=== PATIENT | female | born 1990 ===

== ENCOUNTER 2020-05-01 00:07 | Inpatient (IN) | payer BC ==
[2020-05-01] MEDS ORDERED: Sodium Chloride 0.9% 10 ML SDV IV PRN (00:20)
[2020-05-01] MEDS ORDERED: Carboprost Tromethamine 250 MCG/1 ML Amp IM PRN (00:20)
[2020-05-01] MEDS ORDERED: Nalbuphine 10 MG/1 ML Vial IVPUSH PRN (00:20)
[2020-05-01] MEDS ORDERED: Misoprostol 25 MCG (1/4 of 100 MCG) Tab VAG PRN ×2 (00:20)
[2020-05-01] MEDS ORDERED: Lidocaine 1% 50 ML MDV INJECT PRN (00:20)
[2020-05-01] MEDS ORDERED: Sodium Chloride 0.9% 2.5 ML Syringe FLUSH PRN (00:20)
[2020-05-01] MEDS ORDERED: Butorphanol 1 MG/ML SDV IVPUSH PRN (00:20)
[2020-05-01] MEDS ORDERED: Tranexamic Acid 1,000 MG in Sodium Chloride 0.9% 100 ML IV PRN (00:20)
[2020-05-01] MEDS ORDERED: Terbutaline 1 MG/ML SDV SUBCUT PRN (00:20)
[2020-05-01] MEDS ORDERED: Misoprostol 200 MCG Tab PO PRN (00:20)
[2020-05-01] MEDS ORDERED: Water For Irrigation,Sterile 1,000 ML Container IRR PRN (00:20)
[2020-05-01] MEDS ORDERED: Sodium Chloride 0.9% 10 ML Syringe FLUSH PRN (00:20)
[2020-05-01] MEDS ORDERED: Methylergonovine 0.2 MG/1 ML Amp IM PRN (00:20)
[2020-05-01] MEDS ORDERED: Oxytocin/0.9 % Sodium Chloride 30 UNIT/500 ML BAG IV SCH ×2 (00:30)
[2020-05-01] MEDS: Lactated Ringers 1,000 ML IV SCH ×3 (01:11→15:21)
[2020-05-01] MEDS ORDERED: fentaNYL 100 MCG/2 ML SDV ONE (11:44)
[2020-05-01] MEDS ORDERED: Ropivacaine HCl/PF 100 ML ONE (11:44)
[2020-05-01] MEDS ORDERED: Ropivacaine 0.2% PF 2 MG/ML 20 ML SDV ONE (11:49)
--- NOTE | 2020-05-01 12:30 | PCM.PREANE ---
Preanesthetic Assessment - Procedure Proposed Procedure: FRED. - Anesthesia/Transfusion/Family Hx Anesthesia History: Prior Anesthesia Without Reaction Family History of Anesthesia Reaction: No Transfusion History: No Prior Transfusion(s) Intubation History: Unknown - Review of Systems General: No Symptoms Pulmonary: No Symptoms Cardiovascular: No Symptoms Gastrointestinal: No Symptoms Neurological: No Symptoms Other: Reports: None - Physical Assessment NPO Status Date: 05/01/20 NPO Status Time: 11:30 (Clear liquids) Height: 1.7 m Weight: 96.162 kg ASA Class: 2 Airway Class: Mallampati = 2 Thyro-Mental Finger Breadths: 3 Mouth Opening Finger Breadths: 3 ROM/Head Extension: Full Lungs: Clear to Auscultation, Normal Respiratory Effort Cardiovascular: Regular Rate, Regular Rhythm - Lab Values: Laboratory Last Values WBC 12.31 K/uL (4.0-11.0) H 05/01/20 00:55 RBC 4.20 M/uL (4.30-5.90) L 05/01/20 00:55 Hgb 12.5 g/dL (12.0-16.0) 05/01/20 00:55 Hct 36.4 % (36.0-46.0) 05/01/20 00:55 MCV 86.7 fL (80.0-98.0) 05/01/20 00:55 MCH 29.8 pg (27.0-32.0) 05/01/20 00:55 MCHC 34.3 g/dL (31.0-37.0) 05/01/20 00:55 RDW Std Deviation 42.5 fl (28.0-62.0) 05/01/20 00:55 RDW Coeff of Vignesh 14 % (11.0-15.0) 05/01/20 00:55 Plt Count 179 K/uL (150-400) 05/01/20 00:55 MPV 11.70 fL (7.40-12.00) 05/01/20 00:55 COVID-19 (ACRLOS) NEGATIVE (NEGATIVE) 05/01/20 01:20 Blood Type A POSITIVE 05/01/20 00:55 Antibody Screen NEGATIVE 05/01/20 00:55 - Allergies Allergies/Adverse Reactions: Allergies Allergy/AdvReac Type Severity Reaction Status Date / Time azithromycin Allergy Rash Verified 04/21/20 11:52 [From Zithromax Z-Sam] egg Allergy Hives Verified 04/25/20 15:17 - Blood Blood Available: No Product(s) Available: None - Anesthesia Plan Pre-Op Medication Ordered: None - Acknowledgements Anesthesia Type Planned: Epidural Pt an Appropriate Candidate for the Planned Anesthesia: Yes Alternatives and Risks of Anesthesia Discussed w Pt/Guardian: Yes Pt/Guardian Understands and Agrees with Anesthesia Plan: Yes Additional Comments: 39+3, active labor. 4cm dilated. Pain 9/10. Previous epidural without issues. Discussed, ? answered, permit signed, wishes to proceed. Acceptable candidate. 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: - Past Surgical History HEENT Surgical History: Reports: Oral Surgery, Tonsillectomy Musculoskeletal Surgical History: Reports: Other (See Below) Other Musculoskeletal Surgeries/Procedures:: left middle finger nerve surgery - SUBSTANCE USE Smoking Status *Q: Never Smoker Second Hand Smoke Exposure: No Recreational Drug Use History: No - CURRENT (IN HOUSE) MEDS Current Meds: Current Medications Butorphanol Tartrate (Stadol) 1 mg IVPUSH Q1H PRN PRN Reason: Pain Carboprost Tromethamine (Hemabate Ds) 250 mcg IM ASDIRECTED PRN PRN Reason: Post Hemorrhage Oxytocin/Sodium Chloride (Oxytocin 30 Unit/500 Ml-Ns) 30 unit in 500 mls @ 500 mls/hr IV TITRATE SHADE Tranexamic Acid 1,000 mg/ (Sodium Chloride) 110 mls @ 660 mls/hr IV ONETIME PRN PRN Reason: Bleeding Oxytocin/Sodium Chloride (Oxytocin 30 Unit/500 Ml-Ns) 30 unit in 500 mls @ 2 mls/hr IV TITRATE SHADE; Protocol Last Titration: 05/01/20 10:56 Dose: 12 munits/min, 12 mls/hr Documented by: Lactated Ringer's (Ringers, Lactated) 1,000 mls @ 150 mls/hr IV ASDIRECTED SHADE Last Admin: 05/01/20 11:53 Dose: 999 mls/hr Documented by: Lidocaine HCl (Xylocaine 1%) 50 ml INJECT ONETIME PRN PRN Reason: Laceration repair Methylergonovine Maleate (Methergine) 0.2 mg IM ASDIRECTED PRN PRN Reason: Post Hemorrhage Misoprostol (Cytotec) 200 mcg PO ONETIME PRN PRN Reason: Post Hemorrhage Misoprostol (Cytotec) 25 mcg VAG ONETIME PRN PRN Reason: Cervical Ripening Last Admin: 05/01/20 01:11 Dose: 25 mcg Documented by: Misoprostol (Cytotec) 25 mcg VAG Q4H PRN PRN Reason: Cervical Ripening Last Admin: 05/01/20 05:02 Dose: 25 mcg Documented by: Nalbuphine HCl (Nubain) 10 mg IVPUSH Q1H PRN PRN Reason: Pain (severe 7-10) Sodium Chloride (Saline Flush) 10 ml FLUSH ASDIRECTED PRN PRN Reason: Keep Vein Open Sodium Chloride (Saline Flush) 2.5 ml FLUSH ASDIRECTED PRN PRN Reason: Keep Vein Open Sodium Chloride (Normal Saline) 10 ml IV ASDIRECTED PRN PRN Reason: IV Use Sterile Water (Sterile Water For Irrigation) 1,000 ml IRR ASDIRECTED PRN PRN Reason: delivery Terbutaline Sulfate (Brethine) 0.25 mg SUBCUT ASDIRECTED PRN PRN Reason: Tacysystole Discontinued Medications Fentanyl (Sublimaze) Confirm Administered Dose 100 mcg .ROUTE .STK-MED ONE Stop: 05/01/20 11:45 Ropivacaine (Naropin 0.2%) Confirm Administered Dose 100 mls @ as directed .ROUTE .STK-MED ONE Stop: 05/01/20 11:45 Ropivacaine (Naropin 0.2%) Confirm Administered Dose 20 ml .ROUTE .STK-MED ONE Stop: 05/01/20 11:50
[2020-05-01] MEDS ORDERED: oxyCODONE 5 MG Tab PO PRN (17:25)
[2020-05-01] MEDS ORDERED: Docusate Sodium 100 MG Cap PO PRN (17:25)
[2020-05-01] MEDS ORDERED: Benzocaine/Menthol 20%-0.5% Spray 78 GM Cannister TOP PRN (17:25)
[2020-05-01] MEDS ORDERED: Ibuprofen 400 MG Tab PO PRN (17:25)
[2020-05-01] MEDS ORDERED: Acetaminophen 500 MG Tab PO PRN ×2 (17:25)
[2020-05-01] MEDS ORDERED: Lanolin 100% Cream 7 GM Tube TOP PRN (17:25)
[2020-05-01] MEDS ORDERED: Bisacodyl 10 MG Supp RECTAL PRN (17:25)
[2020-05-01] MEDS ORDERED: Witch Hazel Medicated Pads 40/Jar TOP PRN (17:25)
--- NOTE | 2020-05-01 17:31 | PCM.OPNOTE ---
- General Post-Op/Procedure Note Date of Surgery/Procedure: 05/01/20 Operative Procedure(s): /2nd MLL repaired Findings: Viable female APGARs 9, 9 weight 3250 gm. Spontaneous delivery intact placenta with 3V cord. Pre Op Diagnosis: 39 week IUP. Elective IOL Post-Op Diagnosis: Same Anesthesia Technique: Epidural Primary Surgeon: Albertina Ulrich EBL in mLs: 300 Complications: none known Condition: Good Free Text/Narrative:: Dictation [id number]
--- NOTE | 2020-05-01 18:20 | OR ---
SURGEON: Albertina Ulrich M.D. DATE OF PROCEDURE: 05/01/2020 PREOPERATIVE DIAGNOSES: 1. A 39-week intrauterine . 2. Elective induction of labor. POSTOPERATIVE DIAGNOSES: 1. A 39-week intrauterine . 2. Elective induction of labor. PROCEDURE: Spontaneous vaginal delivery, second-degree midline laceration repair. PRIMARY SURGEON: Albertina Ulrich MD ANESTHESIA: Epidural. ESTIMATED BLOOD LOSS: 300 mL. COMPLICATIONS: None known. FINDINGS: Viable female. score of 9 at one minute, 9 at five minutes. Weight of 3250 g. Spontaneous delivery, intact placenta, 3-vessel cord. DISPOSITION: Infant to nursery, mom in LDRP. PROCEDURE DETAILS: Kymberly is a 29-year-old, G2, P1, at 39 weeks' gestational age, who presents today for scheduled induction of labor due to patient request. Risks of procedure were discussed and proper consent obtained. The patient was admitted, routine labs were drawn. Was initiated on Cytotec ripening. Received 2 doses of Cytotec and at that time was found to be approximately 4 cm, 100% effaced, minus 2 station. She then was transitioned to Pitocin. Became increasingly uncomfortable. Underwent regional anesthesia in the form of epidural. Became more comfortable and an amniotomy was performed. Clear fluid was returned. Then, IUPC was placed to help monitor Pitocin titration. heart tones remained category 1. The patient began to progress more rapidly thereafter and shortly after 4 p.m. was found to be complete, 100% effaced, +2 station. I was called for delivery. Upon my arrival, the patient was placed in modified dorsal lithotomy position, was prepped and draped in usual aseptic manner. Began pushing efforts and pushed adequately to a +4 station. Was able to deliver 's head atraumatically spontaneously, followed by anterior shoulder, posterior shoulder, and remainder of the body without difficulty. A loose nuchal cord x1 was noted, it was reduced manually. Infant's oropharynx and nares were bulb suctioned. Infant was handed off to her mother with attending nursing staff at her side. Cord arterial, cord venous, cord blood sampling obtained. Light pressure was applied while the placenta was delivered spontaneously intact. Vigorous fundal uterine massage was then applied while 30 units of Pitocin was delivered in 500 mL of IV fluid. Upon inspection of cervix, vaginal sidewalls, and perineum, there was found to be a second-degree midline laceration. This was repaired using 3-0 Vicryl in the usual fashion. The patient tolerated this well. Sponge count, instrument count, and needle count were correct. The patient remained in LDRP, to nursery. Hemostasis evident. JERICHO / JOSE /[id number]
[2020-05-01] MEDS: Ibuprofen 800 MG Tab PO PRN (19:43)
[2020-05-02] MEDS: Ibuprofen 800 MG Tab PO PRN ×2 (04:50→12:28)
--- NOTE | 2020-05-02 07:51 | PCM48HPAN ---
Post Anesthesia Note - EVALUATION WITHIN 48HRS OF ANESTHETIC Vital Signs in Normal Range: Yes Patient Participated in Evaluation: Yes Respiratory Function Stable: Yes Airway Patent: Yes Cardiovascular Function Stable: Yes Hydration Status Stable: Yes Pain Control Satisfactory: Yes Nausea and Vomiting Control Satisfactory: Yes Mental Status Recovered: Yes Vital Signs: Last Vital Signs Temp 36.6 C 05/02/20 04:40 Pulse 67 05/02/20 04:40 Resp 18 05/02/20 04:40 BP 124/79 05/02/20 04:40 Pulse Ox 96 05/02/20 04:40
--- NOTE | 2020-05-02 09:54 | PCM.PNPP ---
- General Info Date of Service: 05/02/20 Functional Status: Reports: Pain Controlled, Tolerating Diet, Ambulating, Urinating - Review of Systems General: Denies: Fever, Weakness, Fatigue Pulmonary: Denies: Shortness of Breath Cardiovascular: Denies: Chest Pain, Palpitations Gastrointestinal: Reports: No Symptoms Genitourinary: Reports: No Symptoms Musculoskeletal: Reports: No Symptoms Skin: Reports: No Symptoms Neurological: Reports: No Symptoms Psychiatric: Reports: No Symptoms - General Info Date of Service: 05/02/20 - Patient Data Vital Signs - Most Recent: Last Vital Signs Temp 36.7 C 05/02/20 08:00 Pulse 77 05/02/20 08:00 Resp 14 05/02/20 08:00 BP 124/79 05/02/20 04:40 Pulse Ox 96 05/02/20 08:00 Weight - Most Recent: 96.162 kg I&O - Last 24 Hours: Intake & Output 05/01/20 05/02/20 05/02/20 22:59 06:59 14:59 Output Total 375 Balance -375 Lab Results - Last 24 Hours: Laboratory Results - last 24 hr 05/01/20 05/02/20 Range/Units 17:02 05:35 Hgb 12.1 (12.0-16.0) g/dL Hct 37.4 (36.0-46.0) % Cord ABG pH 7.334 (7.18-7.38) Cord ABG Base Excess -5 (-10--2) Cord VBG pH 7.357 (7.25-7.45) Cord VBG Base Excess -6 (-10--2) Med Orders - Current: Current Medications Acetaminophen (Tylenol Extra Strength) 500 mg PO Q4H PRN PRN Reason: Pain Acetaminophen (Tylenol Extra Strength) 1,000 mg PO Q4H PRN PRN Reason: Pain Benzocaine/Menthol (Dermoplast Pain Relief 20%-0.5% [place]) 78 gm TOP ASDIRECTED PRN PRN Reason: Perineal Comfort Measure Last Admin: 05/01/20 19:43 Dose: 1 canister Documented by: Bisacodyl (Dulcolax) 10 mg RECTAL ONETIME PRN PRN Reason: Constipation Docusate Sodium (Colace) 100 mg PO BID PRN PRN Reason: Constipation Emollient Ointment (Lansinoh Hpa) 0 gm TOP ASDIRECTED PRN PRN Reason: Sore Nipples Last Admin: 05/01/20 19:43 Dose: 1 tube Documented by: Tranexamic Acid 1,000 mg/ (Sodium Chloride) 110 mls @ 660 mls/hr IV ONETIME PRN PRN Reason: Bleeding Oxytocin/Sodium Chloride (Oxytocin 30 Unit/500 Ml-Ns) 30 unit in 500 mls @ 2 mls/hr IV TITRATE SHADE; Protocol Last Titration: 05/01/20 17:03 Dose: 999 munits/min, 999 mls/hr Documented by: Lactated Ringer's (Ringers, Lactated) 1,000 mls @ 150 mls/hr IV ASDIRECTED SHADE Last Admin: 05/01/20 15:21 Dose: 150 mls/hr Documented by: Ibuprofen (Motrin) 400 mg PO Q4H PRN PRN Reason: Pain Ibuprofen (Motrin) 800 mg PO Q6H PRN PRN Reason: Pain Last Admin: 05/02/20 04:50 Dose: 800 mg Documented by: Lidocaine HCl (Xylocaine 1%) 50 ml INJECT ONETIME PRN PRN Reason: Laceration repair Methylergonovine Maleate (Methergine) 0.2 mg IM ASDIRECTED PRN PRN Reason: Post Hemorrhage Nalbuphine HCl (Nubain) 10 mg IVPUSH Q1H PRN PRN Reason: Pain (severe 7-10) Oxycodone HCl (Oxycodone) 5 mg PO Q2H PRN PRN Reason: Pain Sodium Chloride (Saline Flush) 10 ml FLUSH ASDIRECTED PRN PRN Reason: Keep Vein Open Sodium Chloride (Saline Flush) 2.5 ml FLUSH ASDIRECTED PRN PRN Reason: Keep Vein Open Sodium Chloride (Normal Saline) 10 ml IV ASDIRECTED PRN PRN Reason: IV Use Sterile Water (Sterile Water For Irrigation) 1,000 ml IRR ASDIRECTED PRN PRN Reason: delivery Terbutaline Sulfate (Brethine) 0.25 mg SUBCUT ASDIRECTED PRN PRN Reason: Tacysystole Witch Ritika (Tucks) 1 pad TOP ASDIRECTED PRN PRN Reason: comfort care Last Admin: 05/01/20 19:43 Dose: 1 tub Documented by: Discontinued Medications Butorphanol Tartrate (Stadol) 1 mg IVPUSH Q1H PRN PRN Reason: Pain Carboprost Tromethamine (Hemabate Ds) 250 mcg IM ASDIRECTED PRN PRN Reason: Post Hemorrhage Fentanyl (Sublimaze) Confirm Administered Dose 100 mcg .ROUTE .STK-MED ONE Stop: 05/01/20 11:45 Last Admin: 05/01/20 14:27 Dose: Not Given Documented by: Oxytocin/Sodium Chloride (Oxytocin 30 Unit/500 Ml-Ns) 30 unit in 500 mls @ 500 mls/hr IV TITRATE SHADE Ropivacaine (Naropin 0.2%) Confirm Administered Dose 100 mls @ as directed .ROUTE .STK-MED ONE Stop: 05/01/20 11:45 Last Admin: 05/01/20 14:27 Dose: Not Given Documented by: Misoprostol (Cytotec) 200 mcg PO ONETIME PRN PRN Reason: Post Hemorrhage Misoprostol (Cytotec) 25 mcg VAG ONETIME PRN PRN Reason: Cervical Ripening Last Admin: 05/01/20 01:11 Dose: 25 mcg Documented by: Misoprostol (Cytotec) 25 mcg VAG Q4H PRN PRN Reason: Cervical Ripening Last Admin: 05/01/20 05:02 Dose: 25 mcg Documented by: Ropivacaine (Naropin 0.2%) Confirm Administered Dose 20 ml .ROUTE .STK-MED ONE Stop: 05/01/20 11:50 Last Admin: 05/01/20 14:27 Dose: Not Given Documented by: - Infant Interaction Support Person: - Recovery Exam Fundal Tone: Firm Fundal Level: At Umbilicus Fundal Placement: Midline Lochia Amount: Small Lochia Color: Rubra/Red Perineum Description: Edematous Episiotomy/Laceration: Approximated Bladder Status: Voiding - Exam General: Alert, Oriented Lungs: Normal Respiratory Effort Cardiovascular: Regular Rate, Regular Rhythm GI/Abdominal Exam: Normal Bowel Sounds, Soft Extremities: Pedal Edema (trace). No: Vira's Sign Skin: Warm, Dry, Intact Neurological: No New Focal Deficit Psy/Mental Status: Alert, Normal Affect, Normal Mood - Problem List & Annotations (1) Vaginal delivery SNOMED Code(s): 087634587 Code(s): O80 - ENCOUNTER FOR FULL-TERM UNCOMPLICATED DELIVERY Status: Acute Current Visit: Yes - Problem List Review Problem List Initiated/Reviewed/Updated: Yes - My Orders Last 24 Hours: My Active Orders 05/01/20 Dinner Regular Diet [DIET] 05/01/20 17:25 Patient Status [ADT] Routine May Shower [RC] ASDIRECTED Up ad Monica [RC] ASDIRECTED Vital Signs [RC] PER UNIT ROUTINE Acetaminophen [Tylenol Extra Strength] 1,000 mg PO Q4H PRN Acetaminophen [Tylenol Extra Strength] 500 mg PO Q4H PRN Benzocaine/Menthol [Dermoplast Pain Relief 20%-0.5% [place]] 78 gm TOP ASDIRECTED PRN Docusate Sodium [Colace] 100 mg PO BID PRN Ibuprofen [Motrin] 400 mg PO Q4H PRN Ibuprofen [Motrin] 800 mg PO Q6H PRN Lanolin [Lansinoh HPA] See Dose Instructions TOP ASDIRECTED PRN bisacodyL [Dulcolax] 10 mg RECTAL ONETIME PRN oxyCODONE 5 mg PO Q2H PRN witch Ritika [Tucks] 1 pad TOP ASDIRECTED PRN Assess Lochia [WOMSER] Per Unit Routine Assess Uterine Involution [WOMSER] Per Unit Routine Perineal Care [OM.PC] Per Unit Routine Peripheral IV Discontinue [OM.PC] Routine Sitz Bath [OM.PC] Per Unit Routine 05/01/20 17:26 Cooling Warming Measures [RC] ASDIRECTED Ice Therapy [OM.PC] Per Unit Routine 05/02/20 09:52 Ready for Discharge [RC] PER UNIT ROUTINE - Assessment Assessment:: PPD 1 status post - Plan Plan:: Doing well overall, VS and labs reassuring. Would like to go home later today. Discharge instructions reviewed. Follow up at [facility] 6 weeks. Discharge to home today.
== END 2020-05-02 20:35 | disposition home or self-care (01) | DRG 560 ==
LOC: MW.OBCHECK 00:07 → MW.OB 00:07 → MW.OBCHECK 00:21 → OBSVTOIN 17:02 → MW.OB 21:00
PROVIDERS: ADMIT Obstetrics & Gynecology; ATTEND Obstetrics & Gynecology
PROC: 10E0XZZ Delivery of Products of Conception, External Approach (ICD-10-PCS; principal; 2020-05-01)
PROC: 3E0P7VZ Introduction of Hormone into Female Reproductive, Via Natural or Artificial Opening (ICD-10-PCS; 2020-05-01)
PROC: 10907ZC Drainage of Amniotic Fluid, Therapeutic from Products of Conception, Via Natural or Artificial Opening (ICD-10-PCS; 2020-05-01)
PROC: 3E033VJ Introduction of Other Hormone into Peripheral Vein, Percutaneous Approach (ICD-10-PCS; 2020-05-01)
PROC: 0KQM0ZZ Repair Perineum Muscle, Open Approach (ICD-10-PCS; 2020-05-01)
PROC: 10H07YZ Insertion of Other Device into Products of Conception, Via Natural or Artificial Opening (ICD-10-PCS; 2020-05-01)
PROC: 3E0R3BZ Introduction of Anesthetic Agent into Spinal Canal, Percutaneous Approach (ICD-10-PCS; 2020-05-01)
DX: O70.1 Second degree perineal laceration during delivery (principal); Z3A.39 39 weeks gestation of pregnancy; Z37.0 Single live birth; Z11.59 Encounter for screening for other viral diseases
CPT/HCPCS: 36415; 51702; 59025; 59409; 82803; 85014; 85018; 85027; 86592; 86850; 86900; 86901; A9270-GY; J2590; J7120; U0002